=== PATIENT | male | born 1995 | race Caucasian/White ===

== ENCOUNTER 2017-02-28 07:10 | Emergency (ER) | payer BC, OTHER ==
[~2017-02-28] VITALS: Ht 177.8 cm; Wt 86.2 kg
--- NOTE | 2017-02-28 07:54 | ED Upper Extremity ---
General Chief Complaint: Upper Extremity Stated Complaint: LEFT HAND BURN,INDEX FINGER & THUMB Nursing Triage Note: Pt burned his left fingers left thumb and index finger on a smoldering knife. 1st degree tips of fingers noted. Nursing Sepsis Screen: No Definite Risk Source: patient History of Present Illness Time seen by provider: 07:40 Initial Comments The patient is a 21-year-old male who presents this morning with a burn on his left thumb and index finger. He reports that he was using a soldering iron last night and accidentally burned himself. He reported there was considerable discomfort during the night which affected his ability to sleep. There was no other injury. Onset: this morning Pain/Injury Location: left thumb, left 2nd finger Method of Injury: other (burn) Allergies and Home Medications Allergies Coded Allergies: No Known Drug Allergies (Unverified , 03/26/10) Constitutional: see HPI EENTM: no symptoms reported Respiratory: no symptoms reported Cardiovascular: no symptoms reported Gastrointestinal: no symptoms reported Skin: other (high temperature burn left thumb and forefinger) Past [id number] Hx Patient Social History Alcohol Use: Occasionally Uses Recreational Drug Use: No Smoking Status: Current Everyday Smoker Recent Foreign Travel: No Contact w/Someone Who Travel: No Recent Infectious Disease Expo: No Respiratory Hx Respiratory Disorders: No Cardiovascular Hx Cardiac Disorders: No Neurological Hx Neurological Disorders: No Reproductive System Hx Reproductive Disorders: No Genitourinary Hx Genitourinary Disorders: No Gastrointestinal Hx Gastrointestinal Disorders: Yes Musculoskeletal Hx Musculoskeletal Disorders: No Endocrine Hx Endocrine Disorders: No HEENT HX ENT Disorders: No Psychosocial Hx Psychiatric Problems: No Blood Transfusions Hx Blood Disorders: No Physical Exam Vital Signs Vital Sign - Last 12Hours 02/28/17 07:23 Temp 97.0 Pulse 70 Resp 16 B/P (MAP) 140/90 O2 Delivery Room Air Capillary Refill : Less Than 3 Seconds General Appearance: WD/WN, no apparent distress Cardiovascular: normal peripheral pulses, regular rate, rhythm, no edema, no gallop, no JVD, no murmur Respiratory: chest non-tender, lungs clear, normal breath sounds, no respiratory distress, no accessory muscle use Comments There is a 1 cm linear burn over the pad of the left thumb which is charred and painless. There is a smaller burn on the radial aspect of the distal phalanx of the forefinger. A punctate burn is also noted in the web space. Progress/Results/Core Measures Results/Orders Vital Signs/I&O Vital Sign - Last 12Hours 02/28/17 07:23 Temp 97.0 Pulse 70 Resp 16 B/P (MAP) 140/90 O2 Delivery Room Air Blood Pressure Mean: 107 Departure Communication Progress Notes The thumb was dressed with antibiotic ointment and a tube gauze. The patient was instructed that this would heal in by secondary intent as would be noted with a pinch or avulsion type injury. 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 Impression Impression: Primary Impression: third-degree burn left thumb and forefinger Disposition: 01 HOME, SELF-CARE Condition: Stable/Unchanged Departure-Patient Inst. Referrals: [facility] (PCP/Family) Primary Care Physician Add. Discharge Instructions: All discharge instructions reviewed with patient and/or family. Voiced understanding. Keep clean and dry. Use gloves at work until healed TATIANA JEROME MD Feb 28, 2017 07:54
[2017-02-28 08:05] VITALS: BP 138/90
== END 2017-02-28 08:05 | disposition home or self-care (01) ==
LOC: EDUNIT# 07:10 → ER 07:14
DX: T23.342A Burn of third degree of multiple left fingers (nail), including thumb, initial encounter (principal); X19.XXXA Contact with other heat and hot substances, initial encounter; F17.210 Nicotine dependence, cigarettes, uncomplicated; Y99.8 Other external cause status